=== PATIENT | female | born 1975 | race African-American/Black ===

== ENCOUNTER 2024-11-24 18:56 | Emergency (ER) | payer OTHER ==
[~2024-11-24] VITALS: Ht 170.2 cm; Wt 130.0 kg
[2024-11-24 18:58] VITALS: O2SAT 93
[2024-11-24] MEDS ORDERED: *TENECTEPLASE FOR AIS XX SCH (19:09)
[2024-11-24 19:14] VITALS: BP 0/0; PULSE 0; RESP 0; O2SAT 0
[2024-11-24] MEDS ORDERED: TENECTEPLASE 50MG/VIAL (FOR MI OR PE) IV ONE ×2 (20:30)
== END 2024-11-24 19:14 ==
LOC: ER 18:56
DX: I46.9 Cardiac arrest, cause unspecified (principal); I21.19 ST elevation (STEMI) myocardial infarction involving other coronary artery of inferior wall; I10 Essential (primary) hypertension; R06.02 Shortness of breath; Z88.6 Allergy status to analgesic agent
CPT/HCPCS: 82962; 92950; 94664; 94070; 31500; 99285; J3101; Z7610